=== PATIENT | female | born 1955 | race African-American/Black ===

== ENCOUNTER 2018-05-04 12:32 | Emergency (ER) | payer OTHER ==
[~2018-05-04] VITALS: Ht 157.5 cm; Wt 46.3 kg
[~2018-05-04 12:32] MED LIST: NORCO 5-325 TA1 EACH ORAL
[2018-05-04] MEDS ORDERED: Tylenol #3 tab (300mg/30mg) ORAL ONE (13:00)
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
[2018-05-04] MEDS ORDERED: TYLENOL EXTRA500 MG ORAL (13:56)
[2018-05-04 14:21] VITALS: BP 124/74
--- NOTE | 2018-05-05 09:18 | Diagnostic Imaging Report ---
Indication: Right hip pain Technique: 2 views of the right hip Comparison: none Findings: No acute fractures. No dislocations. Small ossific density adjacent to the greater trochanter presumably chronic Impression: Negative This agrees with the preliminary interpretation provided overnight by [facility] service.
--- NOTE | 2018-05-05 09:19 | Diagnostic Imaging Report ---
Indication: Right knee pain Technique: 3 views of the right knee Comparison: None Findings: No suprapatellar effusion. No acute fractures. No dislocations. The joint spaces are preserved Impression: Negative
== END 2018-05-04 14:22 | disposition home or self-care (01) ==
LOC: EMR 13:39
DX: S70.01XA Contusion of right hip, initial encounter (principal); S80.01XA Contusion of right knee, initial encounter; W19.XXXA Unspecified fall, initial encounter; Y92.9 Unspecified place or not applicable; I10 Essential (primary) hypertension; Z88.6 Allergy status to analgesic agent; Z88.0 Allergy status to penicillin
CPT/HCPCS: 99283

== ENCOUNTER 2018-07-01 10:05 | Emergency (ER) | payer OTHER ==
[~2018-07-01] VITALS: Ht 157.5 cm; Wt 45.4 kg
[~2018-07-01 10:05] MED LIST changes: +TYLENOL EXTRA500 MG ORAL
[2018-07-01 10:10] VITALS: BP 136/86
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
[2018-07-01] MEDS ORDERED: Cyclobenzaprine 10mg Tab ORAL ONE (10:45)
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
[2018-07-01] MEDS ORDERED: LIDODERM700 M1 TOPIC (13:04)
[2018-07-01] MEDS ORDERED: CYCLOBENZAPRINE10 MG ORAL (13:04)
[2018-07-01] MEDS ORDERED: ACETAMINOPHEN-1 EAC1 ORAL (13:04)
[2018-07-01 13:08] VITALS: BP 134/82
--- NOTE | 2018-07-01 13:09 | NUR ---
ED Nurse Note: PT SITTING PEACEFULLY IN BED IN NAD. AOX4. PRESCRIPTIONS AND DISCHARGE PAPERWORK EXPLAINED TO PT. PT VERBALIZES UNDERSTANDING AND DENIES ANY QUESTIONS AT THIS TIME. PRESCRIPTIONS AND DISCHARGE PAPERWORK GIVEN TO PT AND ID WRISTBAND REMOVED. PT WALKED OUT OF ER WITH STEADY GAIT AND ALL BELONGINGS.
== END 2018-07-01 13:09 | disposition home or self-care (01) ==
LOC: EMR 10:56
DX: S13.4XXA Sprain of ligaments of cervical spine, initial encounter (principal); V49.9XXA Car occupant (driver) (passenger) injured in unspecified traffic accident, initial encounter; Y92.9 Unspecified place or not applicable; Z88.0 Allergy status to penicillin; I10 Essential (primary) hypertension; Z88.6 Allergy status to analgesic agent
CPT/HCPCS: 99283

== ENCOUNTER 2019-08-06 18:16 | Emergency (ER) | payer MEDICARE, OTHER ==
[~2019-08-06] VITALS: Ht 157.5 cm; Wt 49.0 kg
[~2019-08-06 18:16] MED LIST changes: +ACETAMINOPHEN-1 EAC1 ORAL; +CYCLOBENZAPRINE10 MG ORAL; +LIDODERM700 M1 TOPIC
[2019-08-06 18:30] VITALS: BP 165/103
--- NOTE | 2019-08-06 18:48 | NUR ---
ED Nurse Note: ptRosalio alicea. ambulatory. walked in to er from home. c/o burning pain with urination and urge to urinate x 1 week with subjective fever; reports no N/V or back pain.
[2019-08-06] MEDS ORDERED: BACTRIM DS TAB1 EAC1 ORAL (18:51)
--- NOTE | 2019-08-06 18:51 | Emergency Room Report ---
History of Present Illness General Chief Complaint: Female Urogenital Problems Source: Patient Present Illness HPI 64-year-old female presents with dysuria x7 days worsening acutely over 1 day hesitancy frequency is increased, and burning with urination, no aggravating relieving factors severity is moderate, intermittent patient presents for evaluation and treatment Allergies: Coded Allergies: ASPIRIN (Unverified Allergy, Severe, Itching, 08/25/14) PENICILLINS (Unverified Allergy, Unknown, 08/25/14) Patient History Past Medical History: see triage record Reviewed Nursing Documentation: PMH: Agreed; PSxH: Agreed Nursing Documentation-PMH Past Medical History: No History, Except For Hx Cardiac Problems: No Hx Hypertension: Yes Hx Diabetes: Yes - control DM with diet Hx Cancer: No Hx Gastrointestinal Problems: Yes Hx Neurological Problems: No Review of Systems All Other Systems: negative except mentioned in HPI Physical Exam Vital Signs Date Time Temp Pulse Resp B/P (MAP) Pulse Ox O2 Delivery O2 Flow Rate FiO2 08/06/19 18:30 98.6 77 17 165/103 (123) 97 Room Air General Appearance: well appearing, no apparent distress Head: normocephalic, atraumatic ENT: hearing grossly normal, normal voice Neck: full range of motion, supple Respiratory: no respiratory distress, speaking full sentences Gastrointestinal: soft, tenderness - Suprapubically Genitourinary: no CVA tenderness Neurologic: alert, normal gait Psychiatric: mood/affect normal Skin: no rash Medical Decision Making Diagnostic Impression: Primary Impression: UTI (urinary tract infection) Qualified Codes: N30.01 - Acute cystitis with hematuria ER Course 64-year-old female presents with dysuria will provide antibiotic no evidence of Pyelonephritis no CVA tenderness no systemic signs Last Vital Signs Date Time Temp Pulse Resp B/P (MAP) Pulse Ox O2 Delivery O2 Flow Rate FiO2 08/06/19 18:30 98.6 77 17 165/103 97 Room Air Disposition: HOME, SELF-CARE Condition: Stable Scripts Trimethoprim/Sulfamethoxazole 160/800* (BACTRIM DS TABLET*) 1 Each Tablet 1 TAB ORAL Q12H, #14 TAB 0 Refills Prov: Gasper Chaudhry MD 08/06/19 [facility] Patient Instructions: Urinary Tract Infection Additional Instructions: The patient was provided with discharge instructions, notified to follow-up with a primary care doctor and or specialist in the next 24-48 hours, and to return to the ED if they have worsening of their symptoms. Please note that this report is being documented using [employer] technology. This can lead to erroneous entry secondary to incorrect interpretation by the dictating instrument. Gasper Chaudhry MD Aug 06, 2019 18:51
[2019-08-06 19:00] VITALS: BP 158/89
[2019-08-06] MEDS ORDERED: Bactrim-DS 1 tab ORAL ONE (19:00)
--- NOTE | 2019-08-06 19:00 | NUR ---
ER DISCHARGE NOTE: Patient is cleared to be discharged per ERMD, pt is aox4, on room air, with stable vital signs. pt was given dc and prescription instructions, pt was able to verbalize understanding, pt id band removed. pt is able to ambulate with steady gait. pt took all belongings.
[2019-08-06 19:13] LABS: APPEARANCE,URINE CLOUDY; BILIRUBIN, URINE NEGATIVE (NEGATIVE); COLOR,URINE PALE YELLOW; GLUCOSE, URINE (UA) NEGATIVE (NEGATIVE); KETONES,URINE NEGATIVE (NEGATIVE); LEUKOCYTE ESTERASE ,URINE 3+ (NEGATIVE); NITRITE,URINE NEGATIVE (NEGATIVE); PH,URINE 6 (4.5-8.0); PROTEIN,URINE 1+ (NEGATIVE); UROBILINOGEN,URINE NORMAL MG/DL (0.0-1.0)
[2019-08-12] MEDS ORDERED: NITROFURANTOIN100 M2 ORAL (19:15)
== END 2019-08-06 19:00 | disposition home or self-care (01) ==
LOC: EMR 18:30
DX: N30.01 Acute cystitis with hematuria (principal); E11.9 Type 2 diabetes mellitus without complications; I10 Essential (primary) hypertension; Z88.6 Allergy status to analgesic agent; Z88.0 Allergy status to penicillin
CPT/HCPCS: 81003; 87086; 87181; 99283

== ENCOUNTER 2019-08-18 12:23 | Emergency (ER) | payer MEDICARE, OTHER ==
[~2019-08-18] VITALS: Ht 157.5 cm; Wt 46.3 kg
[~2019-08-18 12:23] MED LIST changes: +BACTRIM DS TAB1 EAC1 ORAL; +NITROFURANTOIN100 M2 ORAL
[2019-08-18 12:44] VITALS: BP 127/78
--- NOTE | 2019-08-18 12:50 | NUR ---
ED Nurse Note: patient walked into ED from home c/o right hand edema and feeling numbness for 1 week ago. patient reports she recently took antibiotics for UTI. patient denies any injury. patient is alert awake x4 ambulatory, breathing unlabored and even, speaking in full sentences. rig
--- NOTE | 2019-08-18 13:14 | Emergency Room Report ---
History of Present Illness General Chief Complaint: Upper Extremity Injury Source: Patient Present Illness HPI Disclaimer: Please note that this report is being documented using [employer] technology. This can lead to erroneous entry secondary to incorrect interpretation by the dictating instrument. HPI: 64-year-old female presents for evaluation of her right hand swelling. She is left-hand dominant. Symptoms worsening over the past few days. She cannot recall specific injury or insect bite but states she may have had them and not remember. She notes swelling over the MCP J of the right index finger. Difficulty with flexion but no difficulty with extension. She notes a little numbness and tingling in that area as well. Denies significant pain unless forcibly flexed. Denies pain in the other digits or swelling other parts of body. Denies wrist pain. PMH: Diabetes PSH: Reviewed Allergies: Penicillin Allergies: Coded Allergies: ASPIRIN (Unverified Allergy, Severe, Itching, 08/25/14) PENICILLINS (Unverified Allergy, Unknown, 08/25/14) Patient History Last Menstrual Period: na Nursing Documentation-PMH Past Medical History: No History, Except For Hx Cardiac Problems: No Hx Hypertension: Yes Hx Diabetes: Yes - control DM with diet Hx Cancer: No Hx Gastrointestinal Problems: Yes Hx Neurological Problems: No Review of Systems All Other Systems: negative except mentioned in HPI Physical Exam Vital Signs Date Time Temp Pulse Resp B/P (MAP) Pulse Ox O2 Delivery O2 Flow Rate FiO2 08/18/19 12:44 98.4 54 18 127/78 98 General: Awake and alert, no acute distress HEENT: NC/AT. EOMI. Resp: Normal work of breathing Skin: Intact. No abrasions, laceration or rash over the exposed skin MSK: Normal tone and bulk. Moving all extremities. There is tenderness and swelling over the MCP J of the index finger right hand. Limitation with flexion. No limitation with extension. Sensation grossly intact. 2+ radial pulse and brisk capillary refill in all digits. No tenderness over the anatomic snuffbox. No limitation to flexion extension of the wrist. Neuro: Awake and alert. Mentating appropriately Medical Decision Making ER Course 64-year-old female presents for evaluation of atraumatic right hand swelling. Swelling is isolated over the right MCP J. Differential includes was not limited to occult injury, insect bite, cellulitis, abscess, crystal apathies such as gout or pseudogout. The patient has no history of such illnesses. May be an occult injury and will obtain an x-ray. Otherwise does not appear to be infectious as there is no warmth, no drainage and the swelling appears to be in the joint itself and not in the skin. Does not appear to be a septic arthritis. Other X-Ray Diagnostic Results Other X-Ray Diagnostic Results : X-Ray ordered: Right hand # of Views/Limited Vs Complete: Complete Indication: Swelling EP Interpretation: Yes Interpretation: no dislocation, no fractures Impression: No acute disease Electronically Signed by: Electronically signed by Dr. Salvatore Ortiz Reevaluation Time: 14:39 Last Vital Signs Date Time Temp Pulse Resp B/P (MAP) Pulse Ox O2 Delivery O2 Flow Rate FiO2 08/18/19 12:44 98.4 53 18 127/78 (94) 98 Reevaluation Impression No obvious fracture dislocation. No significant tenderness on reevaluation. I offered to put the patient in a splint or a hand wrap but she declined. She states she has Tylenol at home and will continue symptomatic treatment. She does want to make sure nothing was broken. We will follow-up with her PMD. I discussed reasons to return to the emergency department. She understands and agrees with treatment plan. Disposition: HOME, SELF-CARE Condition: Stable Salvatore Ortiz MD Aug 18, 2019 13:14
--- NOTE | 2019-08-18 13:46 | NUR ---
ED Nurse Note: Pt in radiology
--- NOTE | 2019-08-18 14:00 | NUR ---
ED Nurse Note: sandwiches, water, juice provided for the patient.
--- NOTE | 2019-08-18 14:50 | NUR ---
ED Nurse Note: patient is cleared for discharge by DR Ortiz, however patient eloped. patient left with her friend. patient did not signed discharge paper, patient left ambulatory steady gait.
--- NOTE | 2019-08-18 14:51 | NUR ---
ELOPEMENT: patient eloped.
[2019-08-18 15:00] VITALS: BP 127/78
--- NOTE | 2019-08-18 15:37 | Diagnostic Imaging Report ---
Indication: Right hand pain Findings: 3 views of the right hand were obtained. Normal bony mineralization and alignment are demonstrated. There is narrowing and osteophyte formation involving several of the joints within the hand and wrist consistent with osteoarthritis. No acute fractures, erosions, or periosteal reaction are seen. Soft tissues are unremarkable. Impression: No acute findings.
== END 2019-08-18 15:00 | disposition home or self-care (01) ==
LOC: EMR 15:00
DX: M25.441 Effusion, right hand (principal); E11.9 Type 2 diabetes mellitus without complications; Z88.6 Allergy status to analgesic agent; Z88.0 Allergy status to penicillin
CPT/HCPCS: 99283

== ENCOUNTER 2020-02-17 00:24 | Emergency (ER) | payer MEDICARE, OTHER ==
[~2020-02-17] VITALS: Ht 165.1 cm; Wt 49.9 kg
[2020-02-17 00:40] VITALS: BP 153/87
[2020-02-17] MEDS ORDERED: Morphine Sulfate 4mg/ml Inj (IV USE ONLY) IVP ONE (00:45)
[2020-02-17] MEDS ORDERED: Omnipaque-300 100ml vial INJ PRN (00:45)
--- NOTE | 2020-02-17 00:47 | Emergency Room Report ---
History of Present Illness General Chief Complaint: Abdominal Pain Source: Patient Present Illness HPI Patient is a 65-year-old female presents to the ER complaining of abdominal pain that started approximately 1 hour prior to arrival. Patient complains of intense pain and nausea. She denies any fever or chills. She denies any chest pain or shortness of breath. She denies any actual vomiting. She denies any dysuria or hematuria. Patient states that she has had similar pain in the past with a bowel obstruction. 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 Patient History Last Menstrual Period: n/a Reviewed Nursing Documentation: PMH: Agreed; PSxH: Agreed Nursing Documentation-PMH Past Medical History: No History, Except For Hx Cardiac Problems: No Hx Hypertension: Yes Hx Diabetes: Yes - control DM with diet Hx Cancer: No Hx Gastrointestinal Problems: Yes Hx Neurological Problems: No Review of Systems All Other Systems: negative except mentioned in HPI Physical Exam Vital Signs Date Time Temp Pulse Resp B/P (MAP) Pulse Ox O2 Delivery O2 Flow Rate FiO2 02/17/20 00:31 97.3 92 18 167/96 (119) 88 Room Air Sp02 EP Interpretation: reviewed, normal General Appearance: GCS 15, moderate distress Head: normocephalic, atraumatic Eyes: bilateral eye normal inspection, bilateral eye PERRL ENT: hearing grossly normal, normal pharynx, no angioedema, normal voice Neck: full range of motion, supple/symm/no masses Respiratory: chest non-tender, lungs clear, normal breath sounds, speaking full sentences Cardiovascular #1: regular rate, rhythm, no edema Gastrointestinal: other - Diffuse abdominal pain, healed surgical incision site Rectal: deferred Genitourinary: no CVA tenderness Musculoskeletal: normal range of motion 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 Patient's vital signs have been stable. Her pain improved with IV morphine. Patient's UDS positive for PCP, opiates and THC. Patient counseled on the dangers of drug abuse. After discussing risks and benefits of further diagnostics, treatment plans, as well as indications for and risks of admission, the patient is agreeable to being discharged home. I have explained that their evaluation and treatment in the emergency department today is an important step towards them achieving better health but that their evaluation today is not intended to replace further evaluation and treatment by a physician in their local clinic. I have explained that while the current findings suggest no immediate life threatening emergency they will require further evaluation and treatment by a physician of their choice in their area. They understand that it will be necessary for them to review the final reports of their ED visit with their clinic physician. We have reviewed indications for return to the Emergency Department. I have explained that additional time may need to pass and/or additional testing as an outpatient may be necessary before a definitive diagnosis can be made. They tell me they are willing to follow up as instructed within the timeframe I recommend. They appear to understand what we discussed. Additionally they understand that if they are unable to be seen by an outpatient physician they are welcome, and in fact should, return to the Emergency Department for a repeat evaluation. The patient is stable at time of discharge. Laboratory Tests Test 02/17/20 00:48 02/17/20 02:10 White Blood Count 10.1 K/UL (4.8-10.8) Red Blood Count 4.98 M/UL (4.20-5.40) Hemoglobin 15.6 G/DL (12.0-16.0) Hematocrit 46.2 % (37.0-47.0) Mean Corpuscular Volume 93 FL (80-99) Mean Corpuscular Hemoglobin 31.4 PG (27.0-31.0) H Mean Corpuscular Hemoglobin Concent 33.9 G/DL (32.0-36.0) Red Cell Distribution Width 13.0 % (11.6-14.8) Platelet Count 308 K/UL (150-450) Mean Platelet Volume 5.5 FL (6.5-10.1) L Neutrophils (%) (Auto) 57.9 % (45.0-75.0) Lymphocytes (%) (Auto) 32.9 % (20.0-45.0) Monocytes (%) (Auto) 7.4 % (1.0-10.0) Eosinophils (%) (Auto) 0.6 % (0.0-3.0) Basophils (%) (Auto) 1.1 % (0.0-2.0) Prothrombin Time 10.4 SEC (9.30-11.50) Prothrombin Time INR 0.9 (0.9-1.1) Activated Partial Thromboplast Time 25 SEC (23-33) Sodium Level 143 MMOL/L (136-145) Potassium Level 4.6 MMOL/L (3.5-5.1) Chloride Level 107 MMOL/L (98-107) Carbon Dioxide Level 21 MMOL/L (21-32) Anion Gap 15 mmol/L (5-15) Blood Urea Nitrogen 14 mg/dL (7-18) Creatinine 1.6 MG/DL (0.55-1.30) H Estimated Glomerular Filtration Rate 39.1 mL/min (>60) Glucose Level 133 MG/DL (74-106) H Calcium Level 9.8 MG/DL (8.5-10.1) Magnesium Level 2.4 MG/DL (1.8-2.4) Total Bilirubin 0.3 MG/DL (0.2-1.0) Aspartate Amino Transferase (AST) 35 U/L (15-37) Alanine Aminotransferase (ALT) 23 U/L (12-78) Alkaline Phosphatase 123 U/L (46-116) H Total Protein 8.0 G/DL (6.4-8.2) Albumin 4.2 G/DL (3.4-5.0) Globulin 3.8 g/dL Albumin/Globulin Ratio 1.1 (1.0-2.7) Lipase 218 U/L (73-393) Urine Color Colorless Urine Appearance Clear Urine pH 5.0 (4.5-8.0) Urine Specific [place] 1.015 (1.005-1.035) Urine Protein Negative (NEGATIVE) Urine Glucose (UA) Negative (NEGATIVE) Urine Ketones Negative (NEGATIVE) Urine Blood Negative (NEGATIVE) Urine Nitrite Negative (NEGATIVE) Urine Bilirubin Negative (NEGATIVE) Urine Urobilinogen Normal MG/DL (0.0-1.0) Urine Leukocyte Esterase Negative (NEGATIVE) Urine Opiates Screen Positive (NEGATIVE) H Urine Barbiturates Screen Negative (NEGATIVE) Phencyclidine (PCP) Screen Positive (NEGATIVE) H Urine Amphetamines Screen Negative (NEGATIVE) Urine Benzodiazepines Screen Negative (NEGATIVE) Urine Cocaine Screen Positive (NEGATIVE) H Urine Marijuana (THC) Screen Positive (NEGATIVE) H EKG Diagnostic Results EKG Time: 01:55 EP Interpretation: Yumiko Mack MD Rate: normal - 63 bpm Rhythm: NSR ST Segments: no acute changes ASA given to the pt in ED: No Rhythm Strip Diag. Results Rhythm Strip Time: 00:47 EP Interpretation: yes - Yumiko Mack MD Rate: 73 bpm Rhythm: NSR, no PVC's, no ectopy Last Vital Signs Date Time Temp Pulse Resp B/P (MAP) Pulse Ox O2 Delivery O2 Flow Rate FiO2 02/17/20 00:31 97.3 92 18 167/96 (119) 88 Room Air Disposition: HOME, SELF-CARE Condition: Stable Scripts Oxycodone/Acetaminophen 5-325* (PERCOCET 5-325 MG TABLET*) 1 Each Tablet 1 TAB ORAL Q6H PRN for For Pain, #12 TAB 0 Refills Prov: Yumiko Mack M.D. 02/17/20 Ondansetron* (ZOFRAN*) 4 Mg Tablet 4 MG ORAL Q6H PRN for Nausea & Vomiting, #14 TAB Prov: Yumiko Mack M.D. 02/17/20 Referrals: NOT CHOSEN [facility]/,REFERRING (PCP) Additional Instructions: The patient was provided with discharge instructions, notified to follow-up with a primary care doctor and or specialist in the next 24-48 hours, and to return to the ED if they have worsening of their symptoms. Please note that this report is being documented using [employer] technology. This can lead to erroneous entry secondary to incorrect interpretation by the dictating instrument. Yumiko Mack M.D. Feb 17, 2020 00:47
[2020-02-17] MEDS ORDERED: Morphine Sulfate 4mg/ml Inj (IV USE ONLY) ONE (00:50)
[2020-02-17 00:57] LABS: BASOPHILS % (AUTO) 1.1 % (0.0-2.0); EOSINOPHILS % (AUTO) 0.6 % (0.0-3.0); HEMATOCRIT 46.2 % (37.0-47.0); HEMOGLOBIN 15.6 G/DL (12.0-16.0); LYMPHOCYTES % (AUTO) 32.9 % (20.0-45.0); MEAN CORPUSCULAR VOLUME 93 FL (80-99); MONOCYTES % (AUTO) 7.4 % (1.0-10.0); NEUTROPHILS % (AUTO) 57.9 % (45.0-75.0); PLATELET COUNT 308 K/UL (150-450); RED BLOOD COUNT 4.98 M/UL (4.20-5.40); WHITE BLOOD COUNT 10.1 K/UL (4.8-10.8)
[2020-02-17 01:13] LABS: ANION GAP 15 mmol/L (5-15); BLOOD UREA NITROGEN 14 mg/dL (7-18); CALCIUM 9.8 MG/DL (8.5-10.1); CARBON DIOXIDE 21 MMOL/L (21-32); CHLORIDE 107 MMOL/L (98-107); CREATININE 1.6 MG/DL (0.55-1.30); POTASSIUM 4.6 MMOL/L (3.5-5.1); SODIUM 143 MMOL/L (136-145)
[2020-02-17 01:14] LABS: INR 0.9 (0.9-1.1)
[2020-02-17 01:18] LABS: ALANINE AMINOTRANSFERASE 23 U/L (12-78); ALBUMIN 4.2 G/DL (3.4-5.0); ALBUMIN/GLOBULIN RATIO 1.1 (1.0-2.7); ALKALINE PHOSPHATASE 123 U/L (46-116); ASPARTATE AMINO TRANSFERASE 35 U/L (15-37); BILIRUBIN,TOTAL 0.3 MG/DL (0.2-1.0)
--- NOTE | 2020-02-17 02:19 | Diagnostic Imaging Report ---
EXAM: CT Abdomen and Pelvis Without Intravenous Contrast CLINICAL HISTORY: ABD PAIN TECHNIQUE: Axial computed tomography images of the abdomen and pelvis without intravenous contrast. CTDI is 3.10 mGy and DLP is 174.30 mGy-cm. One or more of the following dose reduction techniques were used: automated exposure control, adjustment of the mA and/or kV according to patient size, use of iterative reconstruction technique. COMPARISON: 12/03/2014 FINDINGS: Lung bases: Bibasilar atelectasis or scar. Heart: Trace pericardial effusion versus thickening. Clinical data ventricular system without focal inflammatory change. Mediastinum: Small hiatal hernia. ABDOMEN: Liver: No significant abnormality. Gallbladder and bile ducts: No significant abnormality. No calcified stones. Pancreas: No significant abnormality. Spleen: No significant abnormality. Adrenals: No significant abnormality. Kidneys and ureters: Lobulated bilateral renal contour. Subcentimeter bilateral renal calculi measuring up to 5 mm in the left kidney and 2 mm in the right. Mild bilateral hydroureteronephrosis. No calcified ureteral calculi. Stomach and bowel: Distended gas and stool filled rectum. PELVIS: Appendix: No findings to suggest acute appendicitis. Bladder: The distended urinary bladder appears thin walled. Reproductive: Myomatous uterus. ABDOMEN and PELVIS: Intraperitoneal space: No significant abnormality. No free air. Bones/joints: No acute fracture or malalignment. Soft tissues: Postsurgical changes are present in the ventral anterior abdominal wall. Vasculature: No significant abnormality. No abdominal aortic aneurysm. Lymph nodes: No significant abnormality. IMPRESSION: Mild bilateral hydroureteronephrosis. Distention of the urinary bladder. Subcentimeter bilateral renal calculi. No calcified ureteral or bladder calculi.
[2020-02-17 02:22] LABS: APPEARANCE,URINE CLEAR; COLOR,URINE COLORLESS
[2020-02-17 02:23] LABS: BILIRUBIN, URINE NEGATIVE (NEGATIVE); GLUCOSE, URINE (UA) NEGATIVE (NEGATIVE); KETONES,URINE NEGATIVE (NEGATIVE); LEUKOCYTE ESTERASE ,URINE NEGATIVE (NEGATIVE); NITRITE,URINE NEGATIVE (NEGATIVE); PROTEIN,URINE NEGATIVE (NEGATIVE); UROBILINOGEN,URINE NORMAL MG/DL (0.0-1.0)
[2020-02-17] MEDS ORDERED: PERCOCET 5-3251 EACH ORAL (02:26)
[2020-02-17] MEDS ORDERED: ZOFRAN4 M3 ORAL (02:26)
[2020-02-17 02:40] VITALS: BP 142/73
[2020-02-17 02:41] VITALS: BP 142/73
[2020-02-17] MEDS ORDERED: HYDROcodone/Acetamin 5/325 tab ORAL ONE (02:45)
== END 2020-02-17 02:41 | disposition home or self-care (01) ==
LOC: EMR 00:35 → EDBEDREQ 01:09 → CANBEDREQ 02:28 → EMR 02:41
DX: R10.9 Unspecified abdominal pain (principal); F19.10 Other psychoactive substance abuse, uncomplicated; Z88.0 Allergy status to penicillin; Z88.6 Allergy status to analgesic agent; E11.9 Type 2 diabetes mellitus without complications; I10 Essential (primary) hypertension
CPT/HCPCS: 36415; 74176; 80053; 80307; 81003; 83690; 83735; 85025; 85610; 85730; 93005; 96361; 96374; 96375; 99284; J2270; J2405; J7030